=== PATIENT | female | born 1980 | race Hispanic/Latino ===

== ENCOUNTER → 2025-09-26 | Outpatient (CLI) | payer BC ==
[~2025-09-26] MED LIST: CETI10TA57 PO; LINA290C PO; SUMA50TA17 PO; TRAM50TA4 PO
== END | disposition home or self-care (01) ==
LOC: RAH 10:15
PROVIDERS: ATTEND Family Medicine
DX: Z12.31 Encounter for screening mammogram for malignant neoplasm of breast (principal)
CPT/HCPCS: 77067